=== PATIENT | female | born 1945 | race Asian ===

== ENCOUNTER 2018-01-30 19:01 | Emergency (ER) | payer OTHER, MEDICAID ==
[2018-01-30] MEDS: ASPIRIN 325 MG TAB PO (20:05)
[2018-01-30] MEDS: LIDOCAINE/MYLANTA 40 ML BTL PO (20:05)
[2018-01-30 20:13] LABS: ADD MAN DIFF? NO
[2018-01-30 20:14] LABS: BASOPHILS % 0.3 % (0.0-2.0); EOSINOPHILS # 0.1 10^3/ul (0.0-0.5); EOSINOPHILS % 1.3 % (0.0-7.0); HEMATOCRIT 39.9 % (37.0-47.0); HEMOGLOBIN 13.2 g/dl (12.0-16.0); MEAN CORPUSCULAR HEMOGLOBIN 30.6 pg (29.0-33.0); MEAN CORPUSCULAR HGB CONC 33.1 g/dl (32.0-37.0); MEAN CORPUSCULAR VOLUME 92.6 fl (82.0-101.0); MONOCYTE # 0.8 10^3/ul (0.3-0.9); MONOCYTES % 8.2 % (0.0-11.0); PLATELET COUNT 266 10^3/UL (140-415); RED BLOOD COUNT 4.31 10^6/ul (4.20-5.40); RED CELL DISTRIBUTION WIDTH 12.8 % (11.5-14.5)
[2018-01-30 20:35] LABS: ANION GAP 12 (8-16); BLOOD UREA NITROGEN 18 mg/dl (7-20); CALCIUM 9.3 mg/dl (8.4-10.2); CARBON DIOXIDE 28 mmol/L (21-31); CHLORIDE 105 mmol/L (97-110); CREATININE 0.97 mg/dl (0.44-1.00); GLUCOSE 91 mg/dl (70-220); POTASSIUM 3.6 mmol/L (3.5-5.1); SODIUM 141 mmol/L (135-144)
[2018-01-30 20:47] LABS: B-TYPE NATRIURETIC PEPTIDE 309 PG/ML (0-125)
[2018-01-30 20:50] LABS: TROPONIN-I < 0.010 ng/ml (0.000-0.120)
== END 2018-01-31 00:53 | disposition home or self-care (01) ==
LOC: E/R 01-31 00:53
DX: N64.4 Mastodynia (principal); R60.0 Localized edema; R07.89 Other chest pain; I10 Essential (primary) hypertension; Z79.82 Long term (current) use of aspirin
CPT/HCPCS: 36415; 71045; 76642; 80048; 83880; 84484; 85025; 93005; 99285-25

== ENCOUNTER 2018-05-22 10:24 | Emergency (ER) | payer OTHER | END 2018-05-22 12:09 | disposition home or self-care (01) | LOC: FTE 10:24 | DX: S69.91XA Unspecified injury of right wrist, hand and finger(s), initial encounter (principal); I12.9 Hypertensive chronic kidney disease with stage 1 through stage 4 chronic kidney disease, or unspecified chronic kidney disease; N18.2 Chronic kidney disease, stage 2 (mild); X58.XXXA Exposure to other specified factors, initial encounter; Y92.9 Unspecified place or not applicable; Z79.82 Long term (current) use of aspirin | CPT/HCPCS: 29125; 73110-RT; 99283-25 ==